=== PATIENT | male | born 1965 | race Caucasian/White ===

== ENCOUNTER → 2021-07-09 | Outpatient (CLI) | payer BC ==
[~2021-07-09] MED LIST: ELIQUIS2.5 MG PO; MOBIC15 MG PO; PERCOCET 10-321 EACH PO
[2021-07-09 17:33] LABS: HEMOGLOBIN 14.3 gm/dl (14.0-17.5); RED BLOOD COUNT 4.65 M/UL (4.20-5.50); WHITE BLOOD COUNT 7.1 K/UL (4.5-11.0)
[2021-07-09 17:50] LABS: BUN/CREATININE RATIO 10 (0-10)
[2021-07-11 08:10] LABS: THYROXINE (T4) 7.3 ug/dL (4.5-12.0)
== END ==
LOC: LAB 16:18
PROVIDERS: Nurse Practitioner
DX: Z13.220 Encounter for screening for lipoid disorders (principal); Z12.5 Encounter for screening for malignant neoplasm of prostate; M25.531 Pain in right wrist; R53.83 Other fatigue; E55.9 Vitamin D deficiency, unspecified; M19.031 Primary osteoarthritis, right wrist
CPT/HCPCS: 36415; 73100; 80053; 80061; 81001; 84153; 84436; 84443; 84480; 85025

== ENCOUNTER → 2022-01-17 | Outpatient (CLI) | payer BC | LOC: RAD 12:31 | DX: M25.512 Pain in left shoulder (principal); M19.012 Primary osteoarthritis, left shoulder | CPT/HCPCS: 73030 ==